=== PATIENT | female | born 1995 | race Two or more races ===

== ENCOUNTER 2017-06-05 18:39 | Emergency (ER) | payer OTHER ==
[~2017-06-05] VITALS: Ht 160 cm; Wt 50.8 kg
== END 2017-06-05 21:45 | disposition home or self-care (01) ==
LOC: ER 18:39
DX: R51 Headache (principal)

== ENCOUNTER 2021-09-15 17:28 | Emergency (ER) | payer OTHER ==
[~2021-09-15] VITALS: Ht 160 cm; Wt 51.7 kg
[2021-09-15] MEDS ORDERED: PRENATAL + DHA1 EAC1 PO (17:35)
[2021-09-15] MEDS ORDERED: ONDANSETRON ODT8 MG PO (22:38)
== END 2021-09-15 22:45 | disposition home or self-care (01) ==
LOC: ER 17:28
DX: O46.8X1 Other antepartum hemorrhage, first trimester (principal); Z3A.01 Less than 8 weeks gestation of pregnancy; R10.2 Pelvic and perineal pain

== ENCOUNTER 2021-11-07 13:03 | Outpatient (CLI) | payer OTHER ==
[~2021-11-07 13:03] MED LIST: ONDANSETRON ODT8 MG PO; PRENATAL + DHA1 EAC1 PO
== END 2021-11-07 14:15 | disposition home or self-care (01) ==
LOC: PRENATAL 13:03
PROVIDERS: ATTEND Obstetrics & Gynecology Maternal & Fetal Medicine
DX: O36.80X0 Pregnancy with inconclusive fetal viability, not applicable or unspecified (principal); Z36.0 Encounter for antenatal screening for chromosomal anomalies; Z3A.14 14 weeks gestation of pregnancy

== ENCOUNTER 2021-12-10 11:06 | Emergency (ER) | payer OTHER ==
[~2021-12-10] VITALS: Ht 160 cm; Wt 57.2 kg
== END 2021-12-10 14:45 | disposition home or self-care (01) ==
LOC: ER 11:06
DX: O26.91 Pregnancy related conditions, unspecified, first trimester (principal); Z3A.01 Less than 8 weeks gestation of pregnancy; S10.96XA Insect bite of unspecified part of neck, initial encounter

== ENCOUNTER 2021-12-19 10:56 | Outpatient (CLI) | payer OTHER | END 2021-12-19 13:15 | disposition home or self-care (01) | LOC: PRENATAL 10:56 | PROVIDERS: ATTEND Obstetrics & Gynecology Maternal & Fetal Medicine | DX: O35.9XX0 Maternal care for (suspected) fetal abnormality and damage, unspecified, not applicable or unspecified (principal); O35.3XX0 Maternal care for (suspected) damage to fetus from viral disease in mother, not applicable or unspecified; Z14.8 Genetic carrier of other disease; O34.219 Maternal care for unspecified type scar from previous cesarean delivery; O44.00 Complete placenta previa NOS or without hemorrhage, unspecified trimester; Z3A.20 20 weeks gestation of pregnancy ==

== ENCOUNTER 2022-03-20 17:40 | Emergency (ER) | payer OTHER ==
[~2022-03-20] VITALS: Ht 160 cm; Wt 64.0 kg
== END 2022-03-20 23:04 | disposition left against medical advice (07) ==
LOC: ER 17:40
DX: Z53.21 Procedure and treatment not carried out due to patient leaving prior to being seen by health care provider (principal)

== ENCOUNTER 2022-03-22 13:43 | Outpatient (CLI) | payer OTHER ==
[2022-03-22] MEDS ORDERED: IRON325 MG PO (14:22)
== END 2022-03-23 13:16 | disposition home or self-care (01) ==
LOC: OBS/DEL 13:43
PROVIDERS: ATTEND Obstetrics & Gynecology
DX: O23.43 Unspecified infection of urinary tract in pregnancy, third trimester (principal); N39.0 Urinary tract infection, site not specified; O99.013 Anemia complicating pregnancy, third trimester; D64.9 Anemia, unspecified; Z3A.34 34 weeks gestation of pregnancy; K29.70 Gastritis, unspecified, without bleeding

== ENCOUNTER 2022-04-24 10:15 | Inpatient (IN) | payer OTHER ==
[~2022-04-24] VITALS: Ht 160 cm; Wt 3.2 kg
[~2022-04-24 10:15] MED LIST changes: +IRON325 MG PO
== END 2022-04-29 14:55 | disposition home or self-care (01) | DRG 785 ==
LOC: O/R 04-26 07:26 → OB/GYN 04-26 07:26
PROVIDERS: ADMIT Obstetrics & Gynecology; ATTEND Obstetrics & Gynecology
PROC: 0UB70ZZ Excision of Bilateral Fallopian Tubes, Open Approach (ICD-10-PCS; 2022-04-26)
PROC: 4A1HXCZ Monitoring of Products of Conception, Cardiac Rate, External Approach (ICD-10-PCS; 2022-04-26)
PROC: 10D00Z1 Extraction of Products of Conception, Low, Open Approach (ICD-10-PCS; principal; 2022-04-26 16:45)
DX: O34.211 Maternal care for low transverse scar from previous cesarean delivery (principal); Z30.2 Encounter for sterilization; Z37.0 Single live birth; Z3A.39 39 weeks gestation of pregnancy; Z20.822 Contact with and (suspected) exposure to COVID-19

== ENCOUNTER 2023-02-22 09:26 | Emergency (ER) | payer OTHER ==
[~2023-02-22] VITALS: Ht 160 cm; Wt 54.4 kg
[2023-02-22 15:24] LABS: ALBUMIN 4.2 gm/dL (3.4-5.0); BILIRUBIN TOTAL 1.02 mg/dL (0.3-1.2); CALCIUM 9.1 mg/dL (8.5-10.1); CREATININE SERUM 0.81 mg/dL (0.55-1.02); GFR 83.59; GLOBULINA 3.9 G/DL (2.4-3.5); POTASSIUM 3.78 mEq/L (3.5-5.1); TOTAL PROTEIN 8.1 gm/dL (6.4-8.2)
[2023-02-22 15:49] LABS: PH,URINE 8.5 (5.0-8.0); URINE APPEARANCE Turbid; URINE BILIRRUBIN Negative (NEGATIVE); URINE BLOOD Negative; URINE COLOR Yellow; URINE GLUCOSE Negative (NEGATIVE); URINE LEUKOCYTE Small; URINE NITRATE Negative; URINE PROTEIN 30 (NEGATIVE); URINE UROBILINOGEN 0.2 E.U./dl
[2023-02-22 15:52] LABS: URINE EPITHELIAL CELLS 84.4 uL (0.0-38.8); URINE RBC 4.8 uL (0.0-20.8); URINE WBC 61.3 uL (0.0-23.2)
[2023-02-22 16:13] LABS: URINE BACTERIA > 9821.5 uL (0.0-1933); URINE CRYSTALS MODERATE /HPF
[2023-02-22 16:32] LABS: HEMATOCRIT 35.3 % (36.0-45.00); HEMOGLOBIN 11.8 g/dL (12.0-15.00); MEAN CELL VOLUME 80.5 fL (80.00-100.00); MEAN CORPUSCULAR HEMOGLOBIN 26.9 pg (27.00-32.0); MEAN CORPUSCULAR HGB CONC 33.4 g/dl (32.0-36.0); PLATELET COUNT 292 K/uL (150-450); RED BLOOD COUNT 4.39 M/uL (4.00-6.00); RED CELL DISTRIBUTION WIDTH 14.2 % (11.5-14.5)
== END 2023-02-22 17:29 | disposition home or self-care (01) ==
LOC: ER 09:26
PROVIDERS: General Practice
DX: N39.0 Urinary tract infection, site not specified (principal)

== ENCOUNTER 2024-05-13 08:42 | Emergency (ER) | payer OTHER ==
[~2024-05-13] VITALS: Ht 160 cm; Wt 54.4 kg
[2024-05-13] MEDS ORDERED: KETOROLAC TROMETHAMINE 60 MG VIAL IM STA (09:33)
[2024-05-13] MEDS ORDERED: KETOROLAC TROMETHAMINE 60 MG VIAL IM ONE (10:41)
== END 2024-05-13 13:31 | disposition home or self-care (01) ==
LOC: ER 08:45
DX: R51.9 Headache, unspecified (principal); M54.89 Other dorsalgia

== ENCOUNTER → 2025-01-06 | Emergency (ER) | payer OTHER ==
[~2025-01-06] VITALS: Ht 160 cm; Wt 56.2 kg
[~2025-01-06] MED LIST changes: +DEXAMETHASONE SODIUM PHOSPHATE 4 MG/ML VIAL IM ONE; +DEXAMETHASONE SODIUM PHOSPHATE 4 MG/ML VIAL ONE; +KETO10TA2 PO; +KETOROLAC TROMETHAMINE 30 MG VIAL IM ONE; +KETOROLAC TROMETHAMINE 30 MG VIAL ONE; +MEDROLPACK PO; +NORFLEX100MG PO; +ORPHENADRINE CITRATE 30 MG/ML AMPUL IM ONE; +ORPHENADRINE CITRATE 30 MG/ML AMPUL ONE
[2025-01-06 20:22] VITALS: BP 117/82; O2SAT 100
== END | disposition home or self-care (01) ==
LOC: ER 19:23
DX: R07.89 Other chest pain (principal); M94.0 Chondrocostal junction syndrome [Tietze]; F41.0 Panic disorder [episodic paroxysmal anxiety]; F43.0 Acute stress reaction; F41.9 Anxiety disorder, unspecified